=== PATIENT | female | born 1985 | race Hispanic/Latino ===

== ENCOUNTER 2018-03-11 20:53 | Emergency (ER) | payer SELFPAY ==
[2018-03-11 21:26] LABS: #Lymphocytes 1.3 thou/uL (1.20-3.40); #Monocytes 0.6 thou/uL (0.11-0.59); #Neutrophils 9.2 thou/uL (1.40-6.50); %Basophils 0.2 % (0.0-1.0); %Eosinophils 0.2 % (0.0-10.0); %Lymphocytes 11.7 % (21.0-51.0); %Monocytes 4.9 % (0.0-10.0); Hemoglobin 11.9 g/dL (12.0-16.0); Mean Corpuscular HGB CONC 32.4 g/dL (32.0-36.0); Mean Corpuscular Hemoglobin 29.2 pg (27.0-31.0); Mean Corpuscular Volume 90.2 fL (78.0-98.0); Mean Platelet Volume 8.9 fL (7.4-10.4); Platelet Count 226 thou/uL (130-400); RBC Distribution Width 12.2 % (11.5-14.5); Red Blood Cell (RBC) Count 4.07 mill/uL (4.20-5.40); White Blood Cell (WBC) Count 11.1 thou/uL (4.8-10.8)
--- NOTE | 2018-03-11 23:49 | ULT ---
PELVIC ULTRASOUND: 03/11/18 HISTORY: Pelvic pain. Vaginal bleeding with . Recent miscarriage at 6:45 tonight. COMPARISON: None. TECHNIQUE: Transabdominal and endovaginal imaging of the pelvis is performed. FINDINGS: The uterus is identified. No myometrial masses. The uterus measures 4.2 x 6.1 x 10.0 cm. The endometrium is slightly thickened and heterogeneous. Endometrium has a diameter of 1.2 cm. There is abnormal echotexture extending from the endometrium into the cervix. Findings may represent blood products versus retained products of conception. There is no evidence of a gestational sac, yolk sac or pole. No free fluid. Neither ovary is appreciated. No obvious masses in the adnexa. IMPRESSION: Heterogeneous endometrial echotexture with abnormal echotexture extending into the cervix. Findings m ay represent blood products. Retained products of conception cannot be excluded. Correlate with follo wup ultrasound and beta HCG values. POS: [facility]
== END 2018-03-11 23:49 | disposition home or self-care (01) ==
LOC: ERS 20:53
DX: O03.9 Complete or unspecified spontaneous abortion without complication (principal)
CPT/HCPCS: 76856; 84702; 85025; 86850; 86900; 86901; 88305